=== PATIENT | female | born 1975 | race Caucasian/White ===

== ENCOUNTER 2019-07-29 11:23 | Emergency (ER) | payer OTHER ==
[2019-07-29] MEDS ORDERED: Octyl 2-Cyanoacrylate 1 Tube TOP ONE (11:37)
[2019-07-29] MEDS ORDERED: Diphtheria,Pertussis(Acell),Tetanus Vaccine 0.5 ML Syringe IM ONE (11:37)
--- NOTE | 2019-07-29 11:37 | EDM.PDOC ---
ED HPI GENERAL MEDICAL PROBLEM - General Chief Complaint: Laceration Stated Complaint: CUT FINGER Time Seen by Provider: 07/29/19 11:32 Source of Information: Reports: Patient History Limitations: Reports: No Limitations - History of Present Illness INITIAL COMMENTS - FREE TEXT/NARRATIVE: HISTORY AND PHYSICAL: History of present illness: Patient is a 43-year-old female presents to the ED with complaint of thumb laceration. 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 Patient is uncertain of last tetanus. Review of systems: As per history of present illness and below otherwise all systems reviewed and negative. Past medical history: As per history of present illness and as reviewed below otherwise noncontributory. Surgical history: As per history of present illness and as reviewed below otherwise noncontributory. Social history: No reported history of drug or alcohol abuse. Family history: As per history of present illness and as reviewed below otherwise noncontributory. Physical exam: General: Patient sitting comfortably in no acute distress and nontoxic appearing HEENT: Atraumatic, normocephalic, pupils reactive, negative for conjunctival pallor or scleral icterus, mucous membranes moist, throat clear, neck supple, nontender, trachea midline. No meningeal signs. Skin: The very distal tip of the right thumb is avulsed. Bleeding controlled. There is no proximal nail or bony involvement. Extremities: Atraumatic, negative for cords or calf pain. Neurovascular unremarkable. Neuro: Awake, alert, oriented. Cranial nerves II through XII unremarkable. Cerebellum unremarkable. Motor and sensory unremarkable throughout. Exam nonfocal. Notes: No active bleeding to right distal thumb. Wound was cleansed with 250cc saline. Dermabond applied to the area. Patient tolerated well. Therapeutics: tdap Impression: Right thumb injury Plan: Keep the area clean and dry as instructed Follow up with primary care provider Return to ED as needed as discussed Definitive disposition and diagnosis as appropriate pending reevaluation and review of above. Right Finger-Thumb Pain Score (Numeric/FACES): 5 - Related Data Allergies Allergy/AdvReac Type Severity Reaction Status Date / Time No Known Allergies Allergy Verified 07/29/19 11:27 Home Meds: Home Meds . [No Known Home Meds] 07/29/19 [History] Past Medical History HEENT History: Reports: None Cardiovascular History: Reports: None Respiratory History: Reports: None Gastrointestinal History: Reports: None Genitourinary History: Reports: None REGISTERED NURSES History: Reports: Musculoskeletal History: Reports: None Neurological History: Reports: None Psychiatric History: Reports: Anxiety Endocrine/Metabolic History: Reports: None Hematologic History: Reports: None Immunologic History: Reports: None Oncologic (Cancer) History: Reports: None Dermatologic History: Reports: None - Infectious Disease History Infectious Disease History: Reports: Measles, Mumps, Pertussis (Whooping Cough) , Rubella - Past Surgical History Head Surgeries/Procedures: Reports: None Social & Family History - Tobacco Use Smoking Status *Q: Current Every Day Smoker Years of Tobacco use: 28 Packs/Tins Daily: 0.5 - Recreational Drug Use Recreational Drug Use: No ED ROS GENERAL - Review of Systems Review Of Systems: Comprehensive ROS is negative, except as noted in HPI. ED EXAM, SKIN/RASH Exam: See Below (see dictation) Course - Vital Signs Last Recorded V/S: Last Vital Signs Temp 97.8 F 07/29/19 11:25 Pulse 88 07/29/19 11:25 Resp 16 07/29/19 11:25 BP 176/139 H 07/29/19 11:25 Pulse Ox 99 07/29/19 11:25 - Orders/Labs/Meds Orders: Active Orders 24 hr Category Date Time Status Vaccines to be Administered [RC] PER UNIT ROUTINE Care 07/29/19 11:37 Ordered Meds: Medications Discontinued Medications Generic Name Dose Route Start Last Admin Trade Name Freq PRN Reason Stop Dose Admin Diphtheria/Tetanus/Acell Pertussis 0.5 ml 07/29/19 11:37 Adacel IM 07/29/19 11:38 .ONCE ONE Octyl Cyanoacrylate 1 applic 07/29/19 11:37 Dermabond Advance TOP 07/29/19 11:38 ONETIME ONE Departure - Departure Time of Disposition: 11:54 Disposition: Home, Self-Care 01 Condition: Good Clinical Impression: Injury of right thumb - Discharge Information Referrals: PCP,None [Primary Care Provider] - Forms: ED Department Discharge Additional Instructions: The following information is given to patients seen in the emergency department who are being discharged to home. This information is to outline your options for follow-up care. We provide all patients seen in our emergency department with a follow-up referral. The need for follow-up, as well as the timing and circumstances, are variable depending upon the specifics of your emergency department visit. If you don't have a primary care physician on staff, we will provide you with a referral. We always advise you to contact your personal physician following an emergency department visit to inform them of the circumstance of the visit and for follow-up with them and/or the need for any referrals to a consulting specialist. The emergency department will also refer you to a specialist when appropriate. This referral assures that you have the opportunity for follow-up care with a specialist. All of these measure are taken in an effort to provide you with optimal care, which includes your follow-up. Under all circumstances we always encourage you to contact your private physician who remains a resource for coordinating your care. When calling for follow-up care, please make the office aware that this follow-up is from your recent emergency room visit. If for any reason you are refused follow-up, please contact the [facility] Emergency Department at and asked to speak to the emergency department charge nurse. [facility] [address] [place] [address] [place] [address] Keep the area clean and dry as instructed Follow up with primary care provider Return to ED as needed as discussed Sepsis Event Note - Evaluation Sepsis Screening Result: No Definite Risk - Focused Exam Vital Signs: Vital Signs Temp Pulse Resp BP Pulse Ox 07/29/19 11:25 97.8 F 88 16 176/139 H 99 Date Exam was Performed: 07/29/19 Time Exam was Performed: 11:52 - My Orders Last 24 Hours: My Active Orders 07/29/19 11:37 Vaccines to be Administered [RC] PER UNIT ROUTINE - Assessment/Plan Last 24 Hours: My Active Orders 07/29/19 11:37 Vaccines to be Administered [RC] PER UNIT ROUTINE
== END 2019-07-29 12:32 | disposition home or self-care (01) ==
LOC: MW.ED 11:23
DX: S61.011A Laceration without foreign body of right thumb without damage to nail, initial encounter (principal); F17.210 Nicotine dependence, cigarettes, uncomplicated; Z23 Encounter for immunization; W26.0XXA Contact with knife, initial encounter
CPT/HCPCS: 12001; 90471; 90715; 99282; A9270

== ENCOUNTER 2020-11-13 07:34 | Emergency (ER) | payer SELFPAY ==
--- NOTE | 2020-11-13 07:51 | EDM.PDOCBH ---
ED HPI GENERAL MEDICAL PROBLEM - General Chief Complaint: Behavioral/Psych Stated Complaint: ANXIETY, DEPRESSION, THOUGHTS OF SELF HARM Time Seen by Provider: 11/13/20 07:41 Source of Information: Reports: Patient History Limitations: Reports: No Limitations - History of Present Illness INITIAL COMMENTS - FREE TEXT/NARRATIVE: Patient is a 45-year-old female brought in today for possible anxiety and feeling worthless. Patient states that for the past few days she has been feeling very anxious and had difficulty trying to get herself to go to work or take care of her son. She denies also 1 hurt anyone else but has thought about hurting herself because she is is sick of feeling this way in detail make the symptoms go away. She denies any complaints of nausea vomiting fever chills abdominal pain. She denies hearing voices or take any drugs or alcohol. - Related Data Allergies Allergy/AdvReac Type Severity Reaction Status Date / Time No Known Allergies Allergy Verified 11/13/20 07:44 Home Meds: Home Meds . 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 [employer] History: Reports: Musculoskeletal History: Reports: None Neurological History: Reports: None Psychiatric History: Reports: Anxiety Endocrine/Metabolic History: Reports: None Hematologic History: Reports: None Immunologic History: Reports: None Oncologic (Cancer) History: Reports: None Dermatologic History: Reports: None - Infectious Disease History Infectious Disease History: Reports: Measles, Mumps, Pertussis (Whooping Cough), Rubella - Past Surgical History Head Surgeries/Procedures: Reports: None ED ROS GENERAL - Review of Systems Review Of Systems: See Below Constitutional: Reports: No Symptoms HEENT: Reports: No Symptoms Respiratory: Reports: No Symptoms Cardiovascular: Reports: No Symptoms Endocrine: Reports: No Symptoms GI/Abdominal: Reports: No Symptoms : Reports: No Symptoms Musculoskeletal: Reports: No Symptoms Skin: Reports: No Symptoms Neurological: Reports: No Symptoms Psychiatric: Reports: Anxiety, Depression Hematologic/Lymphatic: Reports: No Symptoms Immunologic: Reports: No Symptoms ED EXAM, BEHAVIORAL HEALTH - Physical Exam Exam: See Below Exam Limited By: No Limitations General Appearance: Alert Eye Exam: Bilateral Eye: EOMI, PERRL Nose: Normal Inspection Throat/Mouth: Normal Inspection Head: Atraumatic Neck: Normal Inspection Respiratory/Chest: No Respiratory Distress, Lungs Clear, Normal Breath Sounds Cardiovascular: Normal Peripheral Pulses, Regular Rate, Rhythm GI/Abdominal: Normal Bowel Sounds, Soft, Non-Tender Neurological: Alert, Oriented x 3 Psychiatric: Alert, Normal Cognition, Normal Mood, Oriented COURSE, BEHAVIORAL HEALTH COMP - Course Vital Signs: Last Vital Signs Temp 97.4 F 11/13/20 07:44 Pulse 76 11/13/20 08:05 Resp 15 11/13/20 07:44 BP 120/70 11/13/20 08:05 Pulse Ox 99 11/13/20 08:05 Orders, Labs, Meds: Active Orders 24 hr Category Date Time Status CORONAVIRUS COVID-19 MARC [MOLEC] Stat Lab 11/13/20 08:01 Received DRUG SCREEN, URINE [URCHEM] Stat Lab 11/13/20 08:05 Received Medical Clearance: 11/13/20 08:16 Vital signs are stable and again patient has no medical complaints. We were able to speak to [facility] and patient can be seen there today. We will discharge patient to their services the patient is not actively suicidal. Departure - Departure Time of Disposition: 08:17 Disposition: Home, Self-Care 01 Condition: Good Clinical Impression: Depression - Discharge Information *PRESCRIPTION DRUG MONITORING PROGRAM REVIEWED*: Not Applicable *COPY OF PRESCRIPTION DRUG MONITORING REPORT IN PATIENT THOMAS: Not Applicable Instructions: Major Depressive Disorder, Adult, [id number] Referrals: PCP,None [Primary Care Provider] - Forms: ED Department Discharge Additional Instructions: The following information is given to patients seen in the emergency department who are being discharged to home. This information is to outline your options for follow-up care. We provide all patients seen in our emergency department with a follow-up referral. The need for follow-up, as well as the timing and circumstances, are variable depending upon the specifics of your emergency department visit. If you don't have a primary care physician on staff, we will provide you with a referral. We always advise you to contact your personal physician following an emergency department visit to inform them of the circumstance of the visit and for follow-up with them and/or the need for any referrals to a consulting specialist. The emergency department will also refer you to a specialist when appropriate. This referral assures that you have the opportunity for follow-up care with a specialist. All of these measure are taken in an effort to provide you with optimal care, which includes your follow-up. Under all circumstances we always encourage you to contact your private physician who remains a resource for coordinating your care. When calling for follow-up care, please make the office aware that this follow-up is from your recent emergency room visit. If for any reason you are refused follow-up, please contact the [facility] Emergency Department at and asked to speak to the emergency department charge nurse. Please follow up with your primary care physician. If you do not have a primary care physician, see below: [facility] [address] [place] [id number] [facility] [address] [place] [address] You were seen today in the ED for thoughts of anxiety and possible depression. We were able to get in contact with our local facility [facility] they can see you today. We would like you to go directly there to be evaluated. If after being evaluated by them you are still having any thoughts of harming yourself or others please return to the ED immediately. Sepsis Event Note (ED) - Focused Exam Vital Signs: Vital Signs Temp Pulse Resp BP Pulse Ox 11/13/20 08:05 76 120/70 99 11/13/20 07:44 97.4 F 72 15 123/82 99 - My Orders Last 24 Hours: My Active Orders 11/13/20 08:01 CORONAVIRUS COVID-19 MARC [MOLEC] Stat 11/13/20 08:05 DRUG SCREEN, URINE [URCHEM] Stat - Assessment/Plan Last 24 Hours: My Active Orders 11/13/20 08:01 CORONAVIRUS COVID-19 MARC [MOLEC] Stat 11/13/20 08:05 DRUG SCREEN, URINE [URCHEM] Stat Plan: Patient is a 45-year-old female who presented today for feeling anxious and depressed. Patient states that she occasionally has some thoughts of harming herself but is not actively suicidal. Patient has no medical complaints will medically clear have patient speak to our psychiatrist.
== END 2020-11-13 08:41 | disposition home or self-care (01) ==
LOC: MW.ED 07:34
DX: F32.9 Major depressive disorder, single episode, unspecified (principal); Z20.822 Contact with and (suspected) exposure to COVID-19
CPT/HCPCS: 80305-QW; 99284; U0002